=== PATIENT | female | born 1990 | race Caucasian/White ===

== ENCOUNTER 2016-05-30 18:24 | Observation (INO) | payer MEDICAID ==
[~2016-05-30] VITALS: Ht 154.9 cm; Wt 75.0 kg
[~2016-05-30 18:24] MED LIST: AMIT25TA PO; CLON1TAB23 PO; CODE1CAP9 PO; DULO60CA7 PO; GLUC1500 PO; LAMO250T2 PO; LAMO25TA6 PO; MELA1TAB15 PO; PREG25CA PO; TRAZ100T15 PO; TRAZ50TA18 PO; VILA40TA PO
[2016-05-30] MEDS ORDERED: SODIUM CHLORIDE 0.9% 1,000ML IVBOLUS ONE (19:00)
[2016-05-30] MEDS ORDERED: SODIUM CHLORIDE FLUSH 10ML SYR IVF ONE (19:00)
[2016-05-30 19:29] LABS: DAU SCREEN DISCLAIMER
[2016-05-30 20:00] LABS: HEMOGLOBIN 13.3 g/dL (11.7-16.4)
[2016-05-30 20:11] LABS: ASPARTATE AMINO TRANSFERASE 16 U/L (15-37); BLOOD UREA NITROGEN 5 mg/dL (7-18)
[2016-05-30 20:16] LABS: ACETAMINOPHEN 10 mcg/mL (10-30)
[2016-05-30] MEDS ORDERED: POTASSIUM CHLORIDE 20 MEQ TAB.ER.PRT PO ONE (22:00)
[2016-05-30] MEDS ORDERED: CALCIUM CARBONATE 500 MG TABLET PO SCH (22:00)
[2016-05-30] MEDS ORDERED: ACETAMINOPHEN 325 MG TABLET PO PRN (22:00)
[2016-05-30 23:26] VITALS: BP 104/71
== END 2016-05-31 04:00 ==
LOC: ED 21:02 → INTOOBSV 21:15 → EDIP 21:15 → 3E 22:33
PROVIDERS: ADMIT Internal Medicine; ATTEND Internal Medicine
DX: T43.212A Poisoning by selective serotonin and norepinephrine reuptake inhibitors, intentional self-harm, initial encounter (principal); F31.9 Bipolar disorder, unspecified; E87.6 Hypokalemia; E83.51 Hypocalcemia; E88.09 Other disorders of plasma-protein metabolism, not elsewhere classified; G43.909 Migraine, unspecified, not intractable, without status migrainosus; K58.9 Irritable bowel syndrome, unspecified; F17.200 Nicotine dependence, unspecified, uncomplicated; Z83.3 Family history of diabetes mellitus; Z80.9 Family history of malignant neoplasm, unspecified; Z98.890 Other specified postprocedural states
CPT/HCPCS: 36415; 80053; 80307; 80329; 84703; 85025; 93005; 99285; G0378; J7030; G0480

== ENCOUNTER 2016-10-18 17:44 | Emergency (ER) | payer MEDICAID ==
[~2016-10-18] VITALS: Ht 152.4 cm; Wt 78.0 kg
[2016-10-18] MEDS ORDERED: PROCHLORPERAZINE 5 MG/ML, 2ML IVPush ONE (18:30)
[2016-10-18] MEDS ORDERED: DIPHENHYDRAMINE 50 MG/ML, 1ML IVPush ONE (18:30)
[2016-10-18] MEDS ORDERED: SODIUM CHLORIDE FLUSH 10ML SYR IVF ONE (18:30)
[2016-10-18] MEDS ORDERED: SODIUM CHLORIDE 0.9% 1,000ML IVBOLUS ONE (18:30)
[2016-10-18] MEDS ORDERED: KETOROLAC 30 MG/1 ML IVPush ONE (18:30)
[2016-10-18 18:34] LABS: HEMATOCRIT 41.5 % (34.6-47.8); HEMOGLOBIN 13.7 g/dL (11.7-16.4); WHITE BLOOD COUNT 11.4 x10^3/uL (3.4-10)
[2016-10-18] MEDS ORDERED: KETOROLAC 30 MG/1 ML ONE (18:34)
[2016-10-18] MEDS ORDERED: DIPHENHYDRAMINE 50 MG/ML, 1ML ONE (18:34)
[2016-10-18] MEDS ORDERED: PROCHLORPERAZINE 5 MG/ML, 2ML ONE (18:34)
[2016-10-18 18:46] LABS: BLOOD UREA NITROGEN 5 mg/dL (7-18)
[2016-10-18 18:52] LABS: ASPARTATE AMINO TRANSFERASE 22 U/L (15-37)
[2016-10-18 19:28] VITALS: BP 109/21
== END 2016-10-18 19:30 | disposition home or self-care (01) ==
LOC: ED 19:24
DX: R55 Syncope and collapse (principal); G43.909 Migraine, unspecified, not intractable, without status migrainosus
CPT/HCPCS: 36415; 80053; 84703; 85025; 93005; 96361; 96374; 96375; 99285; J0780; J1200; J1885; J7030

== ENCOUNTER 2017-08-03 20:18 | Emergency (ER) | payer MEDICAID ==
[~2017-08-03] VITALS: Ht 152.4 cm; Wt 75.4 kg
[~2017-08-03 20:18] MED LIST changes: -GLUC1500 PO; +GLUC15006 PO
[2017-08-03] MEDS ORDERED: rizatriptan (20:54)
[2017-08-03] MEDS ORDERED: SUMATRIPTAN (20:54)
[2017-08-03] MEDS ORDERED: PROMETHAZINE 25 MG/ML, 1ML IM ONE (21:30)
[2017-08-03] MEDS ORDERED: METHOCARBAMOL 750 MG TABLET PO ONE (21:30)
[2017-08-03] MEDS ORDERED: PROMETHAZINE 25 MG/ML, 1ML ONE (21:34)
[2017-08-03] MEDS ORDERED: METHOCARBAMOL 750 MG TABLET ONE (21:34)
[2017-08-03] MEDS ORDERED: KETOROLAC 30 MG/1 ML ONE (22:44)
[2017-08-03] MEDS ORDERED: KETOROLAC 30 MG/1 ML IM ONE (23:00)
[2017-08-03 23:24] VITALS: BP 113/82
== END 2017-08-03 23:34 | disposition home or self-care (01) ==
LOC: ED 22:06
DX: G43.109 Migraine with aura, not intractable, without status migrainosus (principal); S16.1XXA Strain of muscle, fascia and tendon at neck level, initial encounter; G89.11 Acute pain due to trauma; X58.XXXA Exposure to other specified factors, initial encounter; Y93.89 Activity, other specified; Y92.89 Other specified places as the place of occurrence of the external cause; Y99.8 Other external cause status
CPT/HCPCS: 96372; 99284; J1885; J2550

== ENCOUNTER 2017-08-25 12:34 | Emergency (ER) | payer MEDICAID ==
[~2017-08-25] VITALS: Ht 152.4 cm; Wt 75.1 kg
[~2017-08-25 12:34] MED LIST changes: +SUMATRIPTAN; +rizatriptan
[2017-08-25] MEDS ORDERED: SODIUM CHLORIDE FLUSH 10ML SYR IVF ONE (13:30)
[2017-08-25] MEDS ORDERED: DIPHENHYDRAMINE 50 MG/ML, 1ML IVPush ONE (13:30)
[2017-08-25] MEDS ORDERED: PROCHLORPERAZINE 5 MG/ML, 2ML IVPush ONE (13:30)
[2017-08-25] MEDS ORDERED: KETOROLAC 30 MG/1 ML IVPush ONE (13:30)
[2017-08-25] MEDS ORDERED: SODIUM CHLORIDE 0.9% 1,000ML IVBOLUS ONE (13:30)
[2017-08-25 13:47] LABS: BASOPHILS # (AUTO) 0.07 x10^3/uL (0-0.1); BASOPHILS % (AUTO) 1 % (0-1); EOSINOPHILS # (AUTO) 0.29 x10^3/uL (0-0.4); EOSINOPHILS % (AUTO) 4 % (1-7); LYMPHOCYTES # (AUTO) 2.62 x10^3/uL (1-3.4); LYMPHOCYTES % (AUTO) 37 % (22-44); MD NO; MEAN CORPUSCULAR HEMOGLOBIN 29.1 pg (27.0-34.8); MEAN CORPUSCULAR VOLUME 88.1 fL (80-100); MEAN PLATELET VOLUME 7.8 fL (7.4-10.4); MONOCYTES # (AUTO) 0.37 x10^3/uL (0.2-0.8); MONOCYTES % (AUTO) 5 % (2-9); NEUTROPHILS # (AUTO) 3.73 x10^3/uL (1.8-6.8); NEUTROPHILS % (AUTO) 53 % (42-75); PLATELET COUNT 365 x10^3/uL (130-400); RED BLOOD COUNT 4.49 x10^6/uL (3.82-5.3); RED CELL DISTRIBUTION WIDTH 14.1 % (9.6-15.2)
[2017-08-25 13:49] LABS: ALBUMIN 3.6 g/dL (3.4-5.0); ANION GAP 7 mmol/L (5-15); CALCIUM 8.5 mg/dL (8.5-10.1); CHLORIDE 115 mmol/L (98-107)
[2017-08-25 13:53] LABS: ALANINE AMINOTRANSFERASE 18 U/L (12-78); ALKALINE PHOSPHATASE 91 U/L (45-117); BILIRUBIN,TOTAL 0.4 mg/dL (0.2-1.0); CREATININE 0.83 mg/dL (0.55-1.02); TOTAL PROTEIN 7.7 g/dL (6.4-8.2)
[2017-08-25] MEDS ORDERED: PROCHLORPERAZINE 5 MG/ML, 2ML ONE (14:03)
[2017-08-25] MEDS ORDERED: KETOROLAC 30 MG/1 ML ONE (14:04)
[2017-08-25] MEDS ORDERED: DIPHENHYDRAMINE 50 MG/ML, 1ML ONE (14:04)
[2017-08-25] MEDS ORDERED: DIAZEPAM 5 MG TABLET ONE (14:10)
[2017-08-25] MEDS ORDERED: DIAZEPAM 5 MG TABLET PO ONE (14:30)
[2017-08-25 16:01] VITALS: BP 99/64
[2017-08-25] MEDS ORDERED: BUSP30TA PO (17:58)
[2017-08-25] MEDS ORDERED: SERT100T5 PO (17:58)
[2017-08-25] MEDS ORDERED: PRAZ2CAP2 PO (17:59)
[2017-08-25] MEDS ORDERED: TOPI200T6 PO (17:59)
[2017-08-25] MEDS ORDERED: TIZA4CAP PO (18:00)
[2017-08-25] MEDS ORDERED: ONDA4TAB7 PO (18:00)
[2017-08-25] MEDS ORDERED: OXYC-302 PO (18:02)
[2017-08-25] MEDS ORDERED: DIAZ5TAB4 PO (18:02)
[2017-08-25] MEDS ORDERED: OMEP-110 PO (18:03)
[2017-08-25] MEDS ORDERED: MECL-76 PO (18:03)
[2017-08-25] MEDS ORDERED: RIZA10TA5 PO (18:04)
[2017-08-25] MEDS ORDERED: SUMA100T4 PO (18:05)
[2017-08-25] MEDS ORDERED: MOME13HF2 INH (18:06)
[2017-08-25] MEDS ORDERED: ALBU18HF INH (18:07)
== END 2017-08-25 16:34 ==
LOC: ED 16:18
DX: G43.909 Migraine, unspecified, not intractable, without status migrainosus (principal); Q07.00 Arnold-Chiari syndrome without spina bifida or hydrocephalus; K90.0 Celiac disease; F31.9 Bipolar disorder, unspecified; M79.7 Fibromyalgia; Z87.891 Personal history of nicotine dependence
CPT/HCPCS: 36415; 70551; 72141; 72146; 80053; 85025; 96374; 96375; 99285; J0780; J1200; J1885; J7030

== ENCOUNTER 2018-01-12 23:19 | Emergency (ER) | payer MEDICAID ==
[~2018-01-12] VITALS: Ht 152.4 cm; Wt 81.9 kg
[~2018-01-12 23:19] MED LIST changes: +ALBU18HF INH; +BUSP30TA PO; +DIAZ5TAB4 PO; +MECL-76 PO; +MOME13HF2 INH; +OMEP-110 PO; +ONDA4TAB7 PO; +OXYC-302 PO; +PRAZ2CAP2 PO; +RIZA10TA5 PO; +SERT100T5 PO; +SUMA100T4 PO; +TIZA4CAP PO; +TOPI200T6 PO; +TRAZ-136 PO; +TRAZ-137 PO; -TRAZ100T15 PO; -TRAZ50TA18 PO
[2018-01-13] MEDS ORDERED: BUPIVACAINE 0.25% ONE (01:19)
[2018-01-13] MEDS ORDERED: BUPIVACAINE 0.25% INFIL ONE (01:30)
[2018-01-13 01:34] VITALS: BP 114/90
== END 2018-01-13 01:44 | disposition home or self-care (01) ==
LOC: ED 01-13 01:00
DX: K08.89 Other specified disorders of teeth and supporting structures (principal); F17.210 Nicotine dependence, cigarettes, uncomplicated
CPT/HCPCS: 64402; 99284

== ENCOUNTER 2018-02-16 15:35 | Emergency (ER) | payer MEDICAID ==
[~2018-02-16] VITALS: Ht 152.4 cm; Wt 85.0 kg
[~2018-02-16 15:35] MED LIST changes: -TRAZ-136 PO; +TRAZ50TA66 PO
[2018-02-16 15:37] VITALS: BP 120/83
[2018-02-16] MEDS ORDERED: KETOROLAC 30 MG/1 ML ONE (16:12)
[2018-02-16] MEDS ORDERED: KETOROLAC 30 MG/1 ML IM ONE (16:30)
== END 2018-02-16 16:45 | disposition home or self-care (01) ==
LOC: ED 15:50
DX: S86.911A Strain of unspecified muscle(s) and tendon(s) at lower leg level, right leg, initial encounter (principal); S93.491A Sprain of other ligament of right ankle, initial encounter; G43.909 Migraine, unspecified, not intractable, without status migrainosus; X58.XXXA Exposure to other specified factors, initial encounter; Y93.89 Activity, other specified; Y92.89 Other specified places as the place of occurrence of the external cause; Y99.8 Other external cause status
CPT/HCPCS: 29515; 73610; 96372; 99283; J1885

== ENCOUNTER 2018-06-26 21:30 | Emergency (ER) | payer MEDICAID ==
[~2018-06-26] VITALS: Ht 154.9 cm; Wt 88.2 kg
[~2018-06-26 21:30] MED LIST changes: +BUPR150T73 PO; +DIVA250T4 PO; +PREG200C PO; +SERT100T32 PO; -SERT100T5 PO; +TRINTELLIX PEG
--- NOTE | 2018-06-26 22:00 | NUR ---
FIRST CONTACT WITH PT. PT STATES " I HAVE CONSTANT NAUSEA VOMITTING LOST BOWEL CONTROL FOR 5 HRS " PT C/O ALL QUDRANTS ABD PAIN WELL. PT'S AOX4. RESPS EVEN AND UNLABORED. ALL MONITORS IN PLACE. CALL LIGHT WITHIN REACH.
[2018-06-26] MEDS ORDERED: METOCLOPRAMIDE 5 MG/ML, 2ML ONE (22:16)
[2018-06-26] MEDS ORDERED: PROCHLORPERAZINE 5 MG/ML, 2ML ONE (22:27)
[2018-06-26] MEDS ORDERED: PROCHLORPERAZINE 5 MG/ML, 2ML IM ONE (22:30)
[2018-06-26] MEDS ORDERED: SODIUM CHLORIDE 0.9% 1,000ML IVBOLUS ONE (22:30)
[2018-06-26] MEDS ORDERED: METOCLOPRAMIDE 5 MG/ML, 2ML IVPush ONE (22:30)
[2018-06-26] MEDS ORDERED: SODIUM CHLORIDE FLUSH 10ML SYR IVF ONE (22:30)
[2018-06-26 22:46] LABS: BASOPHILS # (AUTO) 0.01 x10^3/uL (0-0.1); BASOPHILS % (AUTO) 0 % (0-1); EOSINOPHILS # (AUTO) 0.11 x10^3/uL (0-0.4); EOSINOPHILS % (AUTO) 1 % (1-7); LYMPHOCYTES # (AUTO) 0.86 x10^3/uL (1-3.4); LYMPHOCYTES % (AUTO) 7 % (22-44); MD NO; MEAN CORPUSCULAR HEMOGLOBIN 27.5 pg (27.0-34.8); MEAN CORPUSCULAR HGB CONC 33.4 g/dL (32.4-35.8); MEAN CORPUSCULAR VOLUME 82.3 fL (80-100); MEAN PLATELET VOLUME 7.6 fL (7.4-10.4); MONOCYTES # (AUTO) 0.42 x10^3/uL (0.2-0.8); MONOCYTES % (AUTO) 3 % (2-9); NEUTROPHILS # (AUTO) 11.78 x10^3/uL (1.8-6.8); NEUTROPHILS % (AUTO) 89 % (42-75); PLATELET COUNT 477 x10^3/uL (130-400); RED BLOOD COUNT 5.37 x10^6/uL (3.82-5.3); RED CELL DISTRIBUTION WIDTH 14.1 % (9.6-15.2)
--- NOTE | 2018-06-26 22:46 | NUR ---
PT MEDICATED PER EMAR. PT TOLERATED WELL.
[2018-06-26 22:54] LABS: ALANINE AMINOTRANSFERASE 29 U/L (12-78); ALBUMIN 3.9 g/dL (3.4-5.0); ANION GAP 9 mmol/L (5-15); CHLORIDE 109 mmol/L (98-107); CREATININE 0.93 mg/dL (0.55-1.02)
[2018-06-26 22:59] LABS: ALKALINE PHOSPHATASE 87 U/L (45-117); BILIRUBIN,TOTAL 0.8 mg/dL (0.2-1.0); TOTAL PROTEIN 8.5 g/dL (6.4-8.2)
[2018-06-26] MEDS ORDERED: LORazepam 2 MG/ML, 1ML IVPush ONE (23:00)
[2018-06-26] MEDS ORDERED: LORazepam 2 MG/ML, 1ML ONE (23:05)
--- NOTE | 2018-06-26 23:33 | NUR ---
PT IS NOT ABLE TO PROVIDE URINE SAMPLE AT THIS TIME. PA NOTIFIED.
--- NOTE | 2018-06-26 23:40 | NUR ---
PT REQUESTING PO FLUID. PA SAID NO. PT REEDUCATED ABOUT PO FLUID AT THIS TIME.
--- NOTE | 2018-06-26 23:58 | NUR ---
PT IS NOT ABLE TO PROVIDE URINE SAMPLE STILL.
[2018-06-27 00:08] VITALS: BP 108/81
--- NOTE | 2018-06-27 00:24 | NUR ---
pt provided water. pa notified.
--- NOTE | 2018-06-27 00:43 | NUR ---
PT GIVEN DC INSTRUCTIONS AND SCRIPTS. PT EDUCATED REGARDING DC MEDICATIONS. PT'S AOX4. RESPS EVEN AND UNLABORED. PT AMB TO DC WITH STEADY GAIT. NO ACUTE DISTRESS AT DC.
== END 2018-06-27 00:44 | disposition home or self-care (01) ==
LOC: ED 23:18
DX: R11.2 Nausea with vomiting, unspecified (principal); R19.7 Diarrhea, unspecified; R10.13 Epigastric pain
CPT/HCPCS: 36415; 80053; 83690; 84702; 85025; 96361; 96372; 96374; 99283; J0780; J2060; J7030

== ENCOUNTER 2019-01-18 15:25 | Outpatient (CLI) | payer MEDICAID | END 2019-01-18 23:59 | disposition home or self-care (01) | LOC: RAD 15:25 | PROVIDERS: ATTEND Family Medicine | DX: R10.817 Generalized abdominal tenderness (principal); F17.200 Nicotine dependence, unspecified, uncomplicated; Z91.011 Allergy to milk products; Z88.8 Allergy status to other drugs, medicaments and biological substances; Z91.018 Allergy to other foods | CPT/HCPCS: 74176 ==